=== PATIENT | male | born 1990 | race Caucasian/White ===

== ENCOUNTER 2021-06-09 20:31 | Emergency (ER) | payer OTHER, SELFPAY ==
[2021-06-09 20:31] VITALS: BP 112/87; PULSE 114; RESP 16; TEMP 36.4; O2SAT 96; BMI 36.3
--- NOTE | 2021-06-09 21:59 | RAD_ITS ---
INDICATION: covid 19 EXAMINATION/TECHNIQUE: X-RAY - XR Chest 1 View COMPARISON: None. FINDINGS: The lungs are clear. The cardiomediastinal silhouette is unremarkable. No pleural effusion or pneumothorax. No acute osseous abnormalities. RAD/Chest 1 View (Portable) IMPRESSION: No acute radiographic abnormalities. Electronically Signed: Hector Banks MD at 22:57 EDT Tel , Service support ,
--- NOTE | 2021-06-09 21:59 | EKG12_ITS ---
Test Reason : GENERAL Blood Pressure : / mmHG Vent. Rate : 099 BPM Atrial Rate : 099 BPM P-R Int : 190 ms QRS Dur : 094 ms QT Int : 348 ms P-R-T Axes : 065 -31 050 degrees QTc Int : 446 ms Normal sinus rhythm Left axis deviation Abnormal ECG Confirmed by FAHAD WAGNER, PADMINI ([id number]), editor sound DENITA VALLES ([id number]) on 06/10/2021 9:25:24 AM Referred By: Confirmed By:PADMINI VÁSQUEZ MD
--- NOTE | 2021-06-09 22:07 | EDS_ITS ---
HPI History of Present Illness Chief Complaint: General Illness Informant: patient Narrative Narrative: 31-year-old male presenting to the emergency department on day 9 of Covid symptoms. Patient first developed symptoms last Wednesday was tested on Wednesday got the positive result on . He states that overnight his Covid symptoms have worsened. He notes that his heart rate has been in the 115-120 rate. He notes diarrhea. He notes cough. He notes some shortness of breath with exertion not at rest. He denies any chest pain. He notes he has some dry mouth. No further fevers. He is not on any steroids and has not been referred for monoclonal's. He has a history of sleep apnea and wears CPAP at night. [facility] Medical History (Updated 06/09/21 @ 23:[address] Tung Black DO) COVID-19 Sleep apnea Allergy/AdvReac Type Severity Reaction Status Date / Time SOMETHING FROM A LONG TIME AdvReac PT UNSURE Uncoded 06/09/21 20:34 AGO OF REACTION Social History (Updated 06/09/21 @ 22:[address] Tung Black DO) current gender identity: male Smoking Status: Never smoker substance use type: does not use ROS ROS ED Constitutional Constitutional ED: Reports fever(s); Denies chills or weight loss Eyes Eyes: Denies change in vision or diplopia ENT ENT ED: Reports rhinorrhea and sore throat; Denies ear pain Cardiovascular Cardiovascular: Denies chest pain, orthopnea, palpitations or racing heartbeat Respiratory/Chest Respiratory/Chest: Reports cough and dyspnea on exertion; Denies dyspnea, orthopnea or sputum Gastrointestinal Gastrointestinal: Reports diarrhea; Denies abdominal pain, nausea or vomiting Genitourinary Genitourinary ED: Denies dysuria, hematuria or urinary frequency Musculoskeletal Musculoskeletal: Reports myalgias; Denies arthralgias Integumentary Denies abscess or rash Neurologic Neurologic: Reports headache(s); Denies weakness Psychiatric Psychiatric: Denies anxiety, depression, suicidal ideation or suicidal thoughts Endocrine Endocrinology: Denies polydipsia, polyphagia or polyuria Allergic/Immunologic Allergic/Immunologic ED: Denies mouth swelling, tongue swelling or urticaria EXAM Physical Exam Const Vital Signs: 06/09/21 20:31 06/09/21 22:15 06/09/21 22:21 Temperature 97.5 F L Temperature Source Temporal Pulse Rate 114 H 91 Respiratory Rate 16 14 Respiratory Effort Normal Respiratory Depth Normal Respiratory Pattern Normal Blood Pressure 112/87 H Blood Pressure Mean 95 Pulse Ox 96 98 Oxygen Delivery Method Room Air Room Air Room Air Positive well nourished and well developed General Appearance ED: well developed HEENT Reports normocephalic, head/scalp atraumatic, TM's clear and moist mucous membranes Negative for trauma Tympanic Membrane ED: Yes TM's clear Eyes PERRL and EOMs intact bilaterally Neck no lymphadenopathy, supple and no JVD Resp normal respiratory effort and clear to auscultation bilaterally Cardio regular rate and no murmurs Rate: tachycardic GI normal to inspection, nondistended, normoactive bowel sounds and non-tender Palpation: soft Back/Spine no CVA tenderness and normal ROM Extremity normal to inspection General Extremety ED: Negative for edema General Extremity: Negative for edema Neuro oriented x3 and CN's II-XII intact bilaterally Sensorium / Orientation: alert Motor Exam: strength 5/5 throughout Psych mental status grossly normal Mood & Affect: Negative for depressed or tearful Skin no rashes or lesions noted and no wounds MDM MDM MDM Narrative Medical decision making narrative: CBC shows a normal white blood cell count 6.2. Creatinine 1.44 with a BUN of sixteen. Troponin high-sensitivity is normal at seven. Normal liver enzymes. My interpretation of the chest x-ray is no acute process. He has had resting heart rates into the low 90s. He ambulates with a pulse ox of around 95%. I think that this is going into day ten and the patient should do well. We talked about return instructions Lab Data Attestation: I reviewed the patient's lab results. Labs: Laboratory Results - last 24 hr 06/09/21 06/09/21 22:15 22:15 WBC 6.2 RBC 5.13 Hgb 15.0 Hct 42.4 MCV 82.7 MCH 29.2 MCHC 35.4 RDW Std Deviation 34.9 L RDW Coeff of Ca 11.6 Plt Count 209 MPV 10.7 Immature Gran % (Auto) 0.600 Neut % (Auto) 68.0 Lymph % (Auto) 22.7 [place] % (Auto) 8.5 Eos % (Auto) 0.0 Baso % (Auto) 0.2 Absolute Neuts (auto) 4.2 Absolute Lymphs (auto) 1.41 Nucleated RBC % 0 Sodium 134 L Potassium 3.7 Chloride 100 Carbon Dioxide 26.0 Anion Gap 8 BUN 16 Creatinine 1.44 H Estim Creat Clear Calc 72.57 Est GFR (MDRD) Af Amer 74 Est GFR (MDRD) Non-Af 61 BUN/Creatinine Ratio 11.1 Glucose 100 Calcium 8.3 L Total Bilirubin 0.50 AST 32 ALT 46 Alkaline Phosphatase 56 Troponin I High Sens 7 Total Protein 7.7 Albumin 3.8 Globulin 3.9 Albumin/Globulin Ratio 1.0 Radiography Diagnostic Testing: Clinical Impression(s) from Imaging Studies Chest X-Ray 06/09/21 21:59 IMPRESSION: No acute radiographic abnormalities. Electronically Signed: Hector Banks MD at 22:57 EDT Tel , Service support , EKG Initial EKG: Attestation: I personally reviewed and interpreted this EKG as follows: Comments: Normal sinus rhythm with a ventricular rate of 99 bpm. Discharge Plan Triage Chief Complaint: General Illness ED Provider: Tung Black Dx/Rx/DC Orders Clinical Impression: COVID-19, Sinus tachycardia Instructions: Coronavirus Disease 2019 (COVID-19): Caring for Yourself or Others Primary Care Provider: Care Physician,No Primary Referrals: Casi Agarwal MD [STAFF PHYSICIAN] - As Needed (For primary care) Care Physician,No Primary [Primary Care Provider] - Disposition Disposition: Home, Self Care
[2021-06-09 22:15] VITALS: PULSE 91; RESP 14; O2SAT 98
[2021-06-09 22:21] VITALS: O2SAT 98
[2021-06-09 22:28] LABS: Absolute Lymphocyte Count 1.41 X10^3/uL (0.83-4.51); Absolute Neutrophil Count 4.2 X10^3/uL (2.0-7.7); Basophil# 0.01 X10^3/uL; Basophil% 0.2 % (0-1); Hematocrit 42.4 % (40-54); Lymphocyte # 1.41 X10^3/ul (0.83-4.51); Lymphocyte % 22.7 % (19-41); Mean Corp Hgb Conc 35.4 g/dL (32-36); Mean Corpuscular Hgb 29.2 pg (27.0-32.0); Mean Corpuscular Volume 82.7 fL (80-94); Mean Platelet Vol. 10.7 fl (6.2-12.0); Monocyte# 0.53 X10^3/uL; Monocyte% 8.5 % (0-10); NRBC Flagged by Analyzer 0 % (0-5); Neutrophil # 4.22 X10^3/uL (2.7-7.7); Platelet Count 209 K/mm3 (150-450); RBC Distribution Width CV 11.6 % (11.6-14.6); RBC Distribution Width SD 34.9 fl (35.1-43.9); Red Blood Count 5.13 M/mm3 (4.6-6.2); White Blood Count 6.2 K/mm3 (4.4-11.0)
[2021-06-09 22:47] LABS: AST(SGOT) 32 U/L (15-37); Alanine Aminotransfer ALT/SGPT 46 U/L (16-61); Albumin, Serum 3.8 g/dL (3.2-5.0); Alkaline Phosphatase 56 U/L (45-117); Anion Gap 8 (5-15); BUN 16 mg/dL (7-18); BUN/Creat Ratio 11.1 RATIO (10-20); Calcium,Total 8.3 mg/dL (8.5-10.1); Chloride 100 mmol/L (98-107); Creatinine, Serum 1.44 mg/dL (0.70-1.30); EST Glomerular Filtration Rate 61 mL/min (>60); Est Glom Filt Rate - Afr Amer 74 mL/min (>60); Estimated Creatinine Clearance 72.57 ml/min; Globulin 3.9 g/dL (2.2-4.2); Glucose 100 mg/dL (74-106); Potassium 3.7 mmol/L (3.5-5.1); Protein, Total 7.7 g/dL (6.4-8.2); Sodium Level 134 mmol/L (136-145); Troponin-I HS 7 pg/mL (3.0-78.0)
[2021-06-09 22:56] VITALS: O2SAT 98
[2021-06-09 23:28] VITALS: BP 125/83; PULSE 100; RESP 19; O2SAT 96
== END 2021-06-09 23:39 | disposition home or self-care (01) ==
PROVIDERS: Emergency Provider Emergency Medicine
DX: U07.1 COVID-19 (principal); R00.0 Tachycardia, unspecified; G47.30 Sleep apnea, unspecified
CPT/HCPCS: 71045; 80053; 84484; 85025; 93005; 99285; A4216